=== PATIENT | female | born 2000 | race African-American/Black ===

== ENCOUNTER 2020-03-01 19:20 | Emergency (ER) | payer OTHER ==
[2020-03-01 19:34] VITALS: BP 119/61
--- NOTE | 2020-03-01 20:28 | ER Document Report ---
ED Medical Screen (RME) - General Chief Complaint: Pelvic Pain Stated Complaint: PELVIC PAIN/VAGINAL DISCHARGE Time Seen by Provider: 03/01/20 20:20 Mode of Arrival: Ambulatory Information source: Patient Notes: Otherwise healthy 19-year-old female presented emergency department chief complaint of abnormal vaginal discharge and right lower quadrant abdominal pain over the last 2 weeks. She states she has had negative test and normal ultrasounds done at the [facility]. She reports she is continued to have symptoms. She states the pain comes and goes. She has not had a menstrual cycle since December. She denies any concern for STDs. She denies any vomiting, diarrhea, fever or chills. She does report that the discharge is thick white discharge. Patient is alert, oriented, no acute distress noted. I have greeted and performed a rapid initial assessment of this patient. A comprehensive ED assessment and evaluation of the patient, analysis of test results and completion of the medical decision making process will be conducted by additional ED providers. I have specifically instructed the patient or family members with the patient to immediately return to any nursing staff should anything change in the patient's condition or with their chief complaint. So when he - Related Data Allergies/Adverse Reactions: No Known Allergies Allergy (Unverified 03/01/20 20:25) Home Medications: prozac, beneva, trazadone Past Medical History - Social History Frequency of alcohol use: Rare Physical Exam - Vital signs Vitals: Temp Pulse Resp BP Pulse Ox 98.6 F 76 16 119/61 100 03/01/20 19:03/01/20 19:03/01/20 19:29 03/01/20 19:29 03/01/20 19:29 Course - Vital Signs Vital signs: Temp Pulse Resp BP Pulse Ox 98.6 F 76 16 119/61 100 03/01/20 19:29 03/01/20 19:29 03/01/20 19:29 03/01/20 19:29 03/01/20 19:29
[2020-03-01 21:10] LABS: ABSOLUTE EOSINOPHILS # (AUTO) 0.3 10^3/uL (0.0-0.6); ABSOLUTE LYMPHOCYTES (AUTO) 3.9 10^3/uL (0.5-4.7); ABSOLUTE MONOCYTES (AUTO) 0.5 10^3/uL (0.1-1.4); ABSOLUTE NEUT (AUTO) 4.3 10^3/uL (1.7-8.2); BASOPHILS % (AUTO) 0.3 % (0-2); HEMATOCRIT 39.7 % (36.0-47.0); HEMOGLOBIN 13.1 g/dL (12.0-15.5); LYMPHOCYTES % (AUTO) 43.7 % (13-45); MEAN CORPUSCULAR VOLUME 88 fl (80-97); MONOCYTES % (AUTO) 5.6 % (3-13); PLATELET COUNT 363 10^3/uL (150-450); RED BLOOD COUNT 4.51 10^6/uL (3.72-5.28); RED CELL DISTRIBUTION WIDTH 14.1 % (11.5-14.0); SEGMENTED NEUTROPHILS % (AUTO) 47.4 % (42-78); TOTAL CELLS COUNTED % (AUTO) 100 %
[2020-03-01 21:18] LABS: APPEARANCE,URINE SLIGHTLY-CLOUDY; BILIRUBIN,URINE NEGATIVE (NEGATIVE); COLOR,URINE YELLOW; GLUCOSE, URINE NEGATIVE (NEGATIVE); KETONES,URINE NEGATIVE (NEGATIVE); LEUKOCYTE ESTERASE,URINE TRACE (NEGATIVE); NITRITE,URINE NEGATIVE (NEGATIVE); PROTEIN,URINE NEGATIVE (NEGATIVE); URINE SPECIFIC GRAVITY 1.029
[2020-03-01 21:28] LABS: ALBUMIN 4.8 g/dL (3.7-5.6); ALKALINE PHOSPHATASE 44 U/L (50-135); ANION GAP 10 (5-19); ASPARTATE AMINO TRANSFERASE 20 U/L (5-30); BILIRUBIN,DIRECT 0.2 mg/dL (0.0-0.4); BILIRUBIN,TOTAL 0.4 mg/dL (0.2-1.3); BLOOD UREA NITROGEN 11 mg/dL (7-20); CARBON DIOXIDE 26 mmol/L (22-30); CHLORIDE 104 mmol/L (98-107); GLUCOSE 94 mg/dL (75-110); POTASSIUM 4.4 mmol/L (3.6-5.0)
--- NOTE | 2020-03-01 22:23 | RADIOLOGY REPORT (SQ) ---
EXAM DESCRIPTION: US PELVIS TRANSVAGINAL COMPLETED DATE/TME: 03/01/2020 21:15 CLINICAL HISTORY: 19 years, Female, RLQ pelvic pain COMPARISON: None. TECHNIQUE: Emergent pelvic ultrasound LIMITATIONS: None. FINDINGS: The uterus measures 6.7 x 5.3 x 4.7 cm. The myometrium is homogenous. The endometrium measures 13 mm in thickness. The right ovary measures 3 by 2 x 2 centimeters, the left 3 x 2 x 2 cm. Normal flow to each ovary. No adnexal cyst or mass. No free fluid IMPRESSION: Unremarkable pelvic ultrasound copyright 2010 [employer]- All Rights Reserved
[2020-03-02] MEDS ORDERED: ONDANSETRON 4 MG TAB.RAPDIS ONE (03:23)
[2020-03-02] MEDS ORDERED: ONDANSETRON 4 MG TAB.RAPDIS PO ONE (03:30)
[2020-03-02] MEDS ORDERED: OXYCODONE-ACETAMINOPHEN 5-325 MG TABLET PO ONE ×2 (03:30→03:45)
== END 2020-03-02 04:07 | disposition home or self-care (01) ==
LOC: ER 19:20
DX: R10.31 Right lower quadrant pain (principal); N89.8 Other specified noninflammatory disorders of vagina; R10.2 Pelvic and perineal pain
CPT/HCPCS: 36415; 76830; 80053; 81001; 81025; 84703; 85025; 87086; 93976; 99284